=== PATIENT | male | born 1995 | race Caucasian/White ===

== ENCOUNTER 2021-10-29 09:49 | Emergency (ER) | payer OTHER ==
[~2021-10-29] VITALS: Ht 170.2 cm; Wt 83.0 kg
[2021-10-29] MEDS ORDERED: POVIDONE-IODINE 10% 15 ML SOLUTION UD TP ONE (12:30)
[2021-10-29] MEDS ORDERED: LIDOCAINE 2% 5 ML JELLY TP ONE (12:30)
[2021-10-29] MEDS ORDERED: LIDOCAINE 1% 10 ML VIAL ID ONE (12:30)
[2021-10-29 13:25] VITALS: BP 125/64
== END 2021-10-29 15:00 | disposition home or self-care (01) ==
LOC: EMS 09:54
DX: S00.85XA Superficial foreign body of other part of head, initial encounter (principal); W45.8XXA Other foreign body or object entering through skin, initial encounter; Y93.89 Activity, other specified; Y92.89 Other specified places as the place of occurrence of the external cause; Y99.8 Other external cause status
CPT/HCPCS: 10120; 99285; J3490; 99284